=== PATIENT | male | born 1960 | race African-American/Black ===

== ENCOUNTER → 2016-10-20 | Outpatient (CLI) | payer OTHER ==
[~2016-10-20] MED LIST: ACET325T9 PO; DIVA125T PO; IOHEXOL 300 MG/ML 100ML VIAL. IV ONE; NYST15CR TP; [UNRECOGNIZED DRUG - CODE] IV
--- NOTE | 2016-10-20 14:03 | KCIC ---
Examination: CT soft tissue neck with IV contrast. HISTORY History of left-sided neck mass, difficulty swallowing, lymphadenopathy COMPARISON None available. TECHNIQUE Axial CT images of tissue neck were performed with IV contrast. Coronal sagittal reformats were performed. Exposure: One or more of the following dose reduction technique were utilized for this examination: 1. Automated exposure control. 2.Adjustment of MA and /or KV according to patient size. 3. Use of iterative reconstruction technique. Findings: The visualized i intracranial portion grossly appears unremarkable. Parotid space, java portal developer space, parapharyngeal spaces grossly appears unremarkable. There is focal severe narrowed appearance of the pharynx at the level of the base of the tongue, best visualized on axial image #27 with soft tissue density extending from the base of the tongue to the posterior pharyngeal wall probably enlarged tonsils. Pharyngeal examination is recommended. Examination is limited to motion artifact. The visualized vallecula, piriform sinuses grossly appears unremarkable the visualized vocal cord grossly appears unremarkable. Tiny 6 millimeter hypodensity identified in the right lobe of the thyroid gland likely a small nodule. There is severe intervertebral disc height loss noted at C5-C6 vertebral level. Sclerotic appearance of the C2, C3, C4, C4 vertebral levels. Small bilateral cervical lymph nodes are identified the largest measuring 1 centimeter the cervical level 2 on the right. There is a 1.3 centimeter right submandibular prominent appearing lymph node or extension of the right submandibular gland identified best visualized on series 2 image #38. Impression: 1.Examination is limited due to motion artifact. Grossly there is a severe focal narrowing of the pharynx at the base of the tongue region could be due to enlarged tonsils best seen on series 2 image #26. Clinical correlation is suggested. 2. A 6 millimeter hypodensity identified in the right lobe of thyroid gland likely a small nodule. 3. There is a 1.3 centimeter right submandibular prominent appearing lymph node or extension of the right submandibular gland identified best visualized on series 2 image #38. Few nonspecific bilateral cervical lymph nodes probably reactive. Electronically signed by: Tyler Patel (Oct 20, 2016 14:01:37)
== END | disposition home or self-care (01) ==
LOC: KCIC CT 12:42
PROVIDERS: ATTEND Internal Medicine
DX: R59.9 Enlarged lymph nodes, unspecified (principal); G95.89 Other specified diseases of spinal cord
CPT/HCPCS: 70491; Q9967